=== PATIENT | female | born 1955 | race African-American/Black ===

== ENCOUNTER → 2024-03-04 14:47 | Outpatient (REF) | payer MEDICARE, BC, SELFPAY | LOC: WDC 14:47 | PROVIDERS: ATTENDING PHYSICIAN Obstetrics & Gynecology Gynecology; FAMILY PHYSICIAN Internal Medicine | DX: Z12.31 Encounter for screening mammogram for malignant neoplasm of breast (principal) | CPT/HCPCS: 77063; 77067 ==